=== PATIENT | male | born 1985 | race Two or more races ===

== ENCOUNTER 2023-09-17 11:34 | Inpatient (IN) | payer OTHER ==
[~2023-09-17] VITALS: Ht 188 cm; Wt 131.5 kg
[2023-09-17] MEDS ORDERED: ACETAMINOPHEN ES 500 MG TABLET PO PRN (16:30)
[2023-09-17] MEDS ORDERED: ZOLPIDEM TARTRATE 10 MG TABLET PO PRN (16:30)
[2023-09-17] MEDS ORDERED: MAG HYDROX/AL HYDROX/SIMETH 30 ML UDC PO PRN (16:30)
[2023-09-17] MEDS ORDERED: IBUPROFEN 200 MG TABLET PO PRN (16:30)
[2023-09-17] MEDS ORDERED: LORAZEPAM 1 MG TABLET FOR AGITATION PO PRN (16:30)
[2023-09-17] MEDS ORDERED: MAGNESIUM HYDROXIDE 30 ML UDC PO PRN (16:30)
[2023-09-17 20:55] VITALS: BP 143/78; TEMP 98.3; O2SAT 100
[2023-09-17] MEDS: HOME MED MISCELLANEOUS (RISPERIDONE 2 MG) PO SCH (21:11)
[2023-09-18 08:00] VITALS: BP 124/74; TEMP 98.1; O2SAT 99
[2023-09-18 16:00] VITALS: BP 131/81; TEMP 98.6; O2SAT 99
[2023-09-18 20:38] VITALS: BP 138/70; TEMP 98.2; O2SAT 99
[2023-09-19 08:00] VITALS: BP 128/74; TEMP 97.8; O2SAT 100
[2023-09-19 16:00] VITALS: BP 134/78; TEMP 97.8; O2SAT 98
[2023-09-19 21:02] VITALS: BP 138/68; TEMP 98.4; O2SAT 98
[2023-09-20 08:00] VITALS: BP 133/81; TEMP 97.8; O2SAT 99
[2023-09-20 16:00] VITALS: BP 141/61; TEMP 98.8; O2SAT 99
[2023-09-20 20:00] VITALS: BP 150/73; TEMP 97.6; O2SAT 97
[2023-09-20] MEDS: HOME MED MISCELLANEOUS (RISPERIDONE 2 MG) PO SCH (21:18)
[2023-09-21 08:00] VITALS: BP 100/50; TEMP 98; O2SAT 98
[2023-09-21 20:00] VITALS: BP 131/65; TEMP 98.1; O2SAT 98
[2023-09-22 08:00] VITALS: BP 122/71; TEMP 97.9; O2SAT 98
[2023-09-22 16:00] VITALS: BP 144/81; TEMP 98.8; O2SAT 96
[2023-09-22 20:00] VITALS: BP 146/76; TEMP 98.6; O2SAT 97
[2023-09-23 08:00] VITALS: BP 129/80; TEMP 97.7; O2SAT 99
[2023-09-23 16:00] VITALS: BP 101/51; TEMP 98; O2SAT 97
[2023-09-23 20:36] VITALS: BP 147/77; TEMP 98.1; O2SAT 100
[2023-09-24 08:00] VITALS: BP 117/67; TEMP 98; O2SAT 99
[2023-09-24 16:00] VITALS: BP 131/71; TEMP 98.4; O2SAT 100
[2023-09-24 20:45] VITALS: BP 146/80; TEMP 98.4; O2SAT 100
[2023-09-25 08:00] VITALS: BP 121/69; TEMP 98.6; O2SAT 98
[2023-09-25 22:33] VITALS: BP 133/79; TEMP 98.2; O2SAT 100
[2023-09-26 08:00] VITALS: BP 142/71; TEMP 98.1; O2SAT 98
[2023-09-26 16:00] VITALS: BP 136/78; TEMP 98.6; O2SAT 99
[2023-09-26 20:31] VITALS: BP 125/76; TEMP 98.2; O2SAT 99
[2023-09-27 08:00] VITALS: BP 131/87; TEMP 97.7; O2SAT 100
[2023-09-27 16:00] VITALS: BP 139/82; TEMP 98.2; O2SAT 98
[2023-09-27 20:00] VITALS: BP 140/89; TEMP 98.4; O2SAT 98
[2023-09-28 08:00] VITALS: BP 118/82; TEMP 97.9; O2SAT 99
[2023-09-28 20:00] VITALS: BP 150/93; TEMP 97.6; O2SAT 99
[2023-09-29 08:00] VITALS: BP 136/74; TEMP 97.9; O2SAT 98
[2023-09-29 16:00] VITALS: BP 126/76; TEMP 98.7; O2SAT 98
[2023-09-29 20:24] VITALS: BP 137/63; TEMP 97.9; O2SAT 100
[2023-09-30 08:31] VITALS: BP 118/62; TEMP 98; O2SAT 100
[2023-09-30 20:00] VITALS: BP 131/90; TEMP 97.3; O2SAT 95
[2023-10-01 08:00] VITALS: BP 131/80; TEMP 98.1; O2SAT 98
[2023-10-01] MEDS ORDERED: ZOLPIDEM TARTRATE 10 MG TABLET PO PRN (13:00)
[2023-10-01] MEDS ORDERED: LORAZEPAM 1 MG TABLET FOR AGITATION PO PRN (13:00)
[2023-10-01 16:00] VITALS: BP 133/65; TEMP 97.5; O2SAT 99
[2023-10-01 20:00] VITALS: BP 146/95; TEMP 97.9; O2SAT 98
[2023-10-02 08:00] VITALS: BP 125/54; TEMP 97.7; O2SAT 98
[2023-10-02] MEDS: INVEST MED CVL-231-2002 PO SCH (09:22)
[2023-10-02 20:00] VITALS: BP 153/80; TEMP 97.9; O2SAT 100
[2023-10-03 08:09] VITALS: BP 120/70; TEMP 98.1; O2SAT 99
[2023-10-03 20:00] VITALS: BP 145/79; TEMP 97.6; O2SAT 98
[2023-10-04 08:08] VITALS: BP_SYST 134; BP_SYST 91; BP_DIAS 57; BP_DIAS 79; TEMP 98.2; O2SAT 95; O2SAT 98
[2023-10-04 16:00] VITALS: BP 139/72; TEMP 98.1; O2SAT 98
[2023-10-04 20:00] VITALS: BP 145/80; TEMP 98.8; O2SAT 98
[2023-10-05 08:00] VITALS: BP 138/88; TEMP 98.4; O2SAT 98
[2023-10-05 16:12] VITALS: BP 160/74; TEMP 97.5; O2SAT 100
[2023-10-05 20:00] VITALS: BP 138/78; TEMP 98.8; O2SAT 99
[2023-10-06 07:30] VITALS: BP 106/68; TEMP 97.9; O2SAT 98
[2023-10-06 16:00] VITALS: BP 117/63; TEMP 98.1; O2SAT 97
[2023-10-06 20:00] VITALS: BP 148/82; TEMP 97.8; O2SAT 100
[2023-10-07 08:00] VITALS: BP 131/82; TEMP 99.1; O2SAT 99
[2023-10-07 16:00] VITALS: BP 139/82; TEMP 97.7; O2SAT 98
[2023-10-07 20:00] VITALS: BP 119/73; TEMP 98.2; O2SAT 98
[2023-10-08 04:00] VITALS: BP 154/71; TEMP 98.6; O2SAT 95
[2023-10-08 07:30] VITALS: BP 145/51; TEMP 97.3; O2SAT 97
[2023-10-08] MEDS ORDERED: LORAZEPAM 1 MG TABLET FOR AGITATION PO PRN (13:00)
[2023-10-08] MEDS ORDERED: ZOLPIDEM TARTRATE 10 MG TABLET PO PRN (13:00)
[2023-10-08 16:00] VITALS: BP 127/58; TEMP 97.1; O2SAT 97
[2023-10-08 20:00] VITALS: BP 134/74; TEMP 98.2; O2SAT 98
[2023-10-09 08:00] VITALS: BP 131/66; TEMP 97.9; O2SAT 97
[2023-10-09 23:09] VITALS: BP 157/87; TEMP 98.4; O2SAT 96
[2023-10-09 23:55] VITALS: BP 140/86; TEMP 98; O2SAT 99
[2023-10-10 08:00] VITALS: BP 136/88; TEMP 97.7; O2SAT 98
[2023-10-10 16:00] VITALS: BP 133/93; TEMP 98.4; O2SAT 99
[2023-10-10 20:00] VITALS: BP 142/74; TEMP 97.7; O2SAT 95
[2023-10-11 08:00] VITALS: BP 123/75; TEMP 97.7; O2SAT 98
[2023-10-11 16:00] VITALS: BP 126/73; TEMP 98.1; O2SAT 98
[2023-10-11 20:00] VITALS: BP 135/82; TEMP 98.2; O2SAT 98
[2023-10-12 07:30] VITALS: BP 127/77; TEMP 97.7; O2SAT 97
[2023-10-12 16:00] VITALS: BP 124/67; TEMP 98.4; O2SAT 99
[2023-10-12 20:00] VITALS: BP 135/77; TEMP 97.9; O2SAT 98
[2023-10-13 08:00] VITALS: BP 125/59; TEMP 98.2; O2SAT 98
[2023-10-13 16:15] VITALS: BP 128/69; TEMP 98.6; O2SAT 99
[2023-10-13 20:00] VITALS: BP 127/67; TEMP 98.6; O2SAT 99
[2023-10-14 08:00] VITALS: BP 128/70; TEMP 98; O2SAT 98
[2023-10-14 16:00] VITALS: BP 148/96; TEMP 97.3; O2SAT 98
[2023-10-14 21:49] VITALS: BP 133/96; TEMP 97.9; O2SAT 99
[2023-10-15 07:00] VITALS: BP 124/64; TEMP 98.1; O2SAT 96
[2023-10-15] MEDS ORDERED: LORAZEPAM 1 MG TABLET FOR AGITATION PO PRN (13:00)
[2023-10-15] MEDS ORDERED: ZOLPIDEM TARTRATE 10 MG TABLET PO PRN (13:00)
[2023-10-15 16:00] VITALS: BP 138/77; TEMP 97.5; O2SAT 97
[2023-10-15 22:05] VITALS: BP 138/83; TEMP 98.4; O2SAT 100
[2023-10-16 08:00] VITALS: BP 121/68; TEMP 97.7; O2SAT 97
[2023-10-16 20:00] VITALS: BP 147/73; TEMP 98.2; O2SAT 98
[2023-10-17 07:30] VITALS: BP 127/88; TEMP 98.2; O2SAT 98
[2023-10-17 16:00] VITALS: BP 131/80; TEMP 98.2; O2SAT 95
[2023-10-17 20:00] VITALS: BP 136/79; TEMP 98.2; O2SAT 98
[2023-10-18 07:00] VITALS: BP 118/74; TEMP 97.8; O2SAT 98
[2023-10-18 16:00] VITALS: BP 129/67; TEMP 97.9; O2SAT 100
[2023-10-18 20:00] VITALS: BP 119/78; TEMP 98.2; O2SAT 99
[2023-10-19 11:26] VITALS: BP 122/73; TEMP 97.7; O2SAT 95
[2023-10-19 12:00] VITALS: BP 109/63; TEMP 98.3; O2SAT 89
[2023-10-19 16:00] VITALS: BP 132/71; TEMP 98.1; O2SAT 98
[2023-10-19 20:00] VITALS: BP 147/71; TEMP 98; O2SAT 98
[2023-10-20 08:00] VITALS: BP 129/83; TEMP 97.9; O2SAT 95
[2023-10-20 16:00] VITALS: BP 125/68; TEMP 97.7; O2SAT 99
[2023-10-21 08:00] VITALS: BP 128/65; TEMP 97.9; O2SAT 97
[2023-10-21 16:00] VITALS: BP 141/71; TEMP 98.6; O2SAT 98
[2023-10-21 20:00] VITALS: BP 143/81; TEMP 97.9; O2SAT 100
[2023-10-21 21:21] VITALS: BP 143/81; TEMP 97.9; O2SAT 100
[2023-10-22 07:30] VITALS: BP 115/62; TEMP 98.2; O2SAT 95
[2023-10-22] MEDS ORDERED: LORAZEPAM 1 MG TABLET FOR AGITATION PO PRN (13:00)
[2023-10-22] MEDS ORDERED: ZOLPIDEM TARTRATE 10 MG TABLET PO PRN (13:00)
[2023-10-22 16:00] VITALS: BP_SYST 121; BP_SYST 141; BP_DIAS 56; BP_DIAS 80; TEMP 97.7; TEMP 97.9; O2SAT 100; O2SAT 90
[2023-10-22 20:00] VITALS: BP 143/86; TEMP 98.1; O2SAT 96
[2023-10-23 08:00] VITALS: BP 116/60; TEMP 97.7; O2SAT 98
[2023-10-23 20:00] VITALS: BP 138/80; TEMP 98.2; O2SAT 100
[2023-10-24 07:00] VITALS: BP 133/93; TEMP 98.4; O2SAT 98
[2023-10-24 16:00] VITALS: BP 142/82; TEMP 98.6; O2SAT 98
[2023-10-24 20:00] VITALS: BP 139/69; TEMP 97.7; O2SAT 99
[2023-10-25 08:00] VITALS: BP 119/68; TEMP 98.1; O2SAT 98
[2023-10-25 16:00] VITALS: BP 130/67; TEMP 98.2; O2SAT 97
[2023-10-25 20:00] VITALS: BP 145/88; TEMP 97.9; O2SAT 100
[2023-10-26 09:28] VITALS: BP 144/78; TEMP 94.1; O2SAT 95
[2023-10-26 16:00] VITALS: BP 133/78; TEMP 98.6; O2SAT 98
[2023-10-26 17:35] VITALS: TEMP 98.6
[2023-10-26 20:00] VITALS: BP 133/74; TEMP 98.4; O2SAT 98
[2023-10-27 08:00] VITALS: BP 141/74; TEMP 97.7; O2SAT 100
[2023-10-27 15:48] VITALS: BP 121/73; TEMP 98.8; O2SAT 96
[2023-10-27 20:00] VITALS: BP 138/71; TEMP 97.3; O2SAT 98
[2023-10-28 08:00] VITALS: BP 121/90; TEMP 97.7; O2SAT 97
[2023-10-28 16:00] VITALS: BP 135/85; TEMP 98.2; O2SAT 98
[2023-10-28 20:00] VITALS: BP 122/68; TEMP 98.2; O2SAT 99
[2023-10-29 08:00] VITALS: BP 114/66; TEMP 97.9; O2SAT 98
[2023-10-29] MEDS ORDERED: LORAZEPAM 1 MG TABLET FOR AGITATION PO PRN (13:00)
[2023-10-29] MEDS ORDERED: ZOLPIDEM TARTRATE 10 MG TABLET PO PRN (13:00)
[2023-10-29 16:00] VITALS: BP 117/80; TEMP 98.2; O2SAT 96
[2023-10-29 20:00] VITALS: BP 127/77; TEMP 97.9; O2SAT 97
[2023-10-30 08:00] VITALS: BP 117/72; TEMP 97.7; O2SAT 96
[2023-10-30 16:00] VITALS: BP 140/81; TEMP 97.2; O2SAT 97
[2023-10-30 20:00] VITALS: BP 150/95; TEMP 97.8; O2SAT 98
[2023-10-31 20:00] VITALS: BP 142/85; TEMP 98.2; O2SAT 98
[2023-11-01 08:00] VITALS: BP 123/89; TEMP 97.9; O2SAT 98
[2023-11-01 16:00] VITALS: BP 126/70; TEMP 98.2; O2SAT 98
[2023-11-01 20:00] VITALS: BP 133/76; TEMP 96.6; O2SAT 98
[2023-11-02 07:00] VITALS: BP 119/66; TEMP 98.4; O2SAT 99
[2023-11-03 08:00] VITALS: BP 120/66; TEMP 97.7; O2SAT 98
[2023-11-03 16:00] VITALS: BP 143/88; TEMP 97.9; O2SAT 100
[2023-11-03 20:00] VITALS: BP 134/78; TEMP 98.6; O2SAT 98
[2023-11-04 08:00] VITALS: BP 118/65; TEMP 98.2; O2SAT 96
[2023-11-04 16:00] VITALS: BP 113/61; TEMP 97.3; O2SAT 99
[2023-11-04 20:32] VITALS: BP 136/79; TEMP 97.9; O2SAT 99
[2023-11-05 08:00] VITALS: BP 112/66; TEMP 97.9; O2SAT 98
[2023-11-05] MEDS ORDERED: ZOLPIDEM TARTRATE 10 MG TABLET PO PRN (13:00)
[2023-11-05] MEDS ORDERED: LORAZEPAM 1 MG TABLET FOR AGITATION PO PRN (13:00)
[2023-11-05 16:00] VITALS: BP 133/77; TEMP 97.9; O2SAT 99
[2023-11-06 07:30] VITALS: BP 126/76; TEMP 97.5; O2SAT 99
[2023-11-06 16:00] VITALS: BP 99/58; TEMP 99.9; O2SAT 92
[2023-11-06 20:00] VITALS: BP 144/83; TEMP 98.2; O2SAT 98
[2023-11-07 07:00] VITALS: BP 122/93; TEMP 97.7; O2SAT 99
[2023-11-07 16:00] VITALS: BP 125/80; TEMP 98.4; O2SAT 98
[2023-11-07 20:00] VITALS: BP 124/84; TEMP 98.2; O2SAT 98
[2023-11-08 07:00] VITALS: BP 114/68; TEMP 98.4; O2SAT 99
[2023-11-08 16:00] VITALS: BP 109/75; TEMP 98.6; O2SAT 98
[2023-11-08 20:00] VITALS: BP 118/73; TEMP 97.5; O2SAT 97
[2023-11-08 21:12] VITALS: BP 118/73; TEMP 97.5; O2SAT 97
[2023-11-09 07:30] VITALS: BP 128/82; TEMP 98.2; O2SAT 98
[2023-11-09 20:00] VITALS: BP 153/81; TEMP 98.2; O2SAT 96
[2023-11-10 20:00] VITALS: BP 120/73; TEMP 98.2; O2SAT 98
[2023-11-11 07:30] VITALS: BP 94/64; TEMP 98.6; O2SAT 94
[2023-11-11 08:00] VITALS: BP 117/68; TEMP 98; O2SAT 100
[2023-11-11 16:00] VITALS: BP 110/82; TEMP 98.1; O2SAT 99
[2023-11-11 20:00] VITALS: BP_SYST 132; BP_SYST 138; BP_DIAS 92; TEMP 98.6; O2SAT 98
[2023-11-12 08:00] VITALS: BP 119/64; TEMP 97.9; O2SAT 97
[2023-11-12] MEDS ORDERED: ZOLPIDEM TARTRATE 10 MG TABLET PO PRN (13:00)
[2023-11-12] MEDS ORDERED: LORAZEPAM 1 MG TABLET FOR AGITATION PO PRN (13:00)
[2023-11-13 07:30] VITALS: BP 117/75; TEMP 97.7; O2SAT 98
[2023-11-13 16:00] VITALS: BP 137/76; TEMP 97.7; O2SAT 98
[2023-11-13 20:00] VITALS: BP 120/85; TEMP 98; O2SAT 96
[2023-11-14 07:30] VITALS: BP 116/67; TEMP 97.9; O2SAT 98
[2023-11-14 16:00] VITALS: BP 123/71; TEMP 97.7; O2SAT 99
[2023-11-14 20:00] VITALS: BP 141/85; TEMP 98.1; O2SAT 98
[2023-11-15 08:00] VITALS: BP 130/62; TEMP 97.5; O2SAT 96
[2023-11-15 16:08] VITALS: BP 134/75; TEMP 97.9; O2SAT 96
[2023-11-15 21:33] VITALS: BP 136/86; TEMP 98.4; O2SAT 96
[2023-11-16 07:00] VITALS: BP 126/80; TEMP 98.1; O2SAT 98
== END 2023-11-16 13:57 | disposition home or self-care (01) | DRG 951 ==
LOC: MEDOV2 15:40 → GPS 16:00 → MED 09-30 07:05
PROVIDERS: ADMIT Psychiatry & Neurology Psychiatry; ATTEND Psychiatry & Neurology Psychiatry
DX: Z00.6 Encounter for examination for normal comparison and control in clinical research program (principal); F20.0 Paranoid schizophrenia; Z79.899 Other long term (current) drug therapy
CPT/HCPCS: G0378

== ENCOUNTER 2024-10-08 09:03 | Inpatient (IN) | payer OTHER ==
[~2024-10-08] VITALS: Ht 188 cm; Wt 131.5 kg
[2024-10-08] MEDS ORDERED: IBUPROFEN 200 MG TABLET PO PRN (15:30)
[2024-10-08] MEDS ORDERED: MAGNESIUM HYDROXIDE 30 ML UDC PO PRN (15:30)
[2024-10-08] MEDS ORDERED: ZOLPIDEM TARTRATE 10 MG TABLET PO PRN (15:30)
[2024-10-08] MEDS ORDERED: MAG HYDROX/AL HYDROX/SIMETH 30 ML UDC PO PRN (15:30)
[2024-10-08] MEDS ORDERED: LORAZEPAM 1 MG TABLET FOR AGITATION PO PRN (15:30)
[2024-10-08] MEDS ORDERED: ACETAMINOPHEN ES 500 MG TABLET PO PRN (15:30)
[2024-10-08] MEDS ORDERED: RISP2TAB85 PO (17:30)
[2024-10-08 20:56] VITALS: BP 134/76; TEMP 97.9; O2SAT 100
[2024-10-08] MEDS: RISPERIDONE 2 MG PO SCH (21:18)
[2024-10-08] MEDS ORDERED: risperiDONE 1 MG TABLET PO SCH (22:00)
[2024-10-09 20:00] VITALS: BP 142/74; TEMP 97.3; O2SAT 98
[2024-10-10 07:30] VITALS: BP 128/88; TEMP 97.5; O2SAT 98
[2024-10-10 16:00] VITALS: BP 128/72; TEMP 97.7; O2SAT 97
[2024-10-10 20:00] VITALS: BP 138/80; TEMP 97.9; O2SAT 98
[2024-10-10 20:58] VITALS: BP 138/80; TEMP 97.9; O2SAT 98
[2024-10-11 08:00] VITALS: BP 127/77; TEMP 98.1; O2SAT 99
[2024-10-11 16:00] VITALS: BP 137/90; TEMP 98.1; O2SAT 96
[2024-10-11 20:00] VITALS: BP 140/76; TEMP 98.4; O2SAT 99
[2024-10-12 08:22] VITALS: BP 122/81; TEMP 98; O2SAT 97
[2024-10-12 16:08] VITALS: BP 129/72; TEMP 98; O2SAT 97
[2024-10-13 08:40] VITALS: BP 123/78; TEMP 98; O2SAT 96
[2024-10-13 16:15] VITALS: BP 147/79; TEMP 98.1; O2SAT 100
[2024-10-13 20:00] VITALS: BP 143/84; TEMP 98.2; O2SAT 99
[2024-10-14 07:30] VITALS: BP 127/82; TEMP 98.1; O2SAT 96
[2024-10-14 16:00] VITALS: BP 124/74; TEMP 98.2; O2SAT 96
[2024-10-14 20:00] VITALS: BP 139/78; TEMP 98.5; O2SAT 99
[2024-10-15 07:00] VITALS: BP 115/73; TEMP 97.5; O2SAT 98
[2024-10-15 16:00] VITALS: BP 138/80; TEMP 97.3; O2SAT 96
[2024-10-15 20:00] VITALS: BP 153/82; TEMP 98.1; O2SAT 94
[2024-10-16 20:00] VITALS: BP 149/83; TEMP 97.9; O2SAT 98
[2024-10-17 08:00] VITALS: BP 134/84; TEMP 97.5; O2SAT 98
[2024-10-17 17:37] VITALS: BP 128/72; TEMP 98.2; O2SAT 99
[2024-10-17 20:00] VITALS: BP 127/62; TEMP 97.3; O2SAT 93
[2024-10-18 08:00] VITALS: BP 117/73; TEMP 98.1; O2SAT 98
[2024-10-18 16:00] VITALS: BP 127/85; TEMP 98.2; O2SAT 100
[2024-10-18 20:00] VITALS: BP 130/81; TEMP 98.1; O2SAT 97
[2024-10-19 08:27] VITALS: BP 122/83; TEMP 97.9; O2SAT 98
[2024-10-19 16:00] VITALS: BP 125/79; TEMP 98.1; O2SAT 99
[2024-10-19 20:31] VITALS: BP 131/81; TEMP 97.7; O2SAT 100
[2024-10-20 07:30] VITALS: BP 113/69; TEMP 97.2; O2SAT 97
[2024-10-20 20:00] VITALS: BP 142/77; TEMP 98.6; O2SAT 98
[2024-10-21 08:00] VITALS: BP 129/71; TEMP 97.7; O2SAT 98
[2024-10-21 16:00] VITALS: BP 122/73; TEMP 98.1; O2SAT 98
[2024-10-22 07:30] VITALS: BP 102/51; TEMP 97.5; O2SAT 99
[2024-10-22] MEDS ORDERED: ZOLPIDEM TARTRATE 10 MG TABLET PO PRN (13:00)
[2024-10-22] MEDS ORDERED: LORAZEPAM 1 MG TABLET FOR AGITATION PO PRN (13:00)
[2024-10-22 16:20] VITALS: BP 138/75; TEMP 98.2; O2SAT 98
[2024-10-22] MEDS: INVEST MED OTSUKA 382-201-00035 PO SCH (19:54)
[2024-10-22 20:00] VITALS: BP 130/72; TEMP 98.4; O2SAT 100
[2024-10-23 07:30] VITALS: BP 96/46; TEMP 97.7; O2SAT 100
[2024-10-23 20:00] VITALS: BP 125/72; TEMP 98.1; O2SAT 97
[2024-10-24 07:00] VITALS: BP 129/72; TEMP 97.7; O2SAT 95
[2024-10-24 20:00] VITALS: BP 145/88; TEMP 97.9; O2SAT 99
[2024-10-25 08:00] VITALS: BP 142/81; TEMP 97.9; O2SAT 96
[2024-10-25 16:25] VITALS: BP 140/84; O2SAT 99
[2024-10-25 20:00] VITALS: BP 147/90; TEMP 97.2; O2SAT 98
[2024-10-26 09:09] VITALS: BP 165/81; TEMP 97.7; O2SAT 97
[2024-10-26 16:29] VITALS: BP 137/74; TEMP 98; O2SAT 97
[2024-10-26 21:22] VITALS: BP 133/82; TEMP 98.1; O2SAT 98
[2024-10-27 08:00] VITALS: BP 124/79; TEMP 98.2; O2SAT 98
[2024-10-27 16:00] VITALS: BP 135/70; TEMP 97.3; O2SAT 96
[2024-10-27 20:00] VITALS: BP 119/80; TEMP 98.1; O2SAT 97
[2024-10-28 08:00] VITALS: BP 139/82; TEMP 97.7; O2SAT 99
[2024-10-28] MEDS ORDERED: ZOLPIDEM TARTRATE 10 MG TABLET PO PRN (13:00)
[2024-10-28] MEDS ORDERED: LORAZEPAM 1 MG TABLET FOR AGITATION PO PRN (13:00)
[2024-10-28 16:00] VITALS: BP 134/74; TEMP 98.2; O2SAT 99
[2024-10-28 20:00] VITALS: BP 141/86; TEMP 97.9; O2SAT 97
[2024-10-28 21:20] VITALS: BP 141/86; TEMP 97.9; O2SAT 97
[2024-10-29 07:30] VITALS: BP 121/61; TEMP 97.5; O2SAT 100
[2024-10-29 16:00] VITALS: BP 136/69; TEMP 97.5; O2SAT 99
[2024-10-29 20:00] VITALS: BP 138/73; TEMP 97.7; O2SAT 99
[2024-10-30 08:00] VITALS: BP 124/76; TEMP 98.2; O2SAT 97
[2024-10-30 16:00] VITALS: BP 134/85; TEMP 98; O2SAT 96
[2024-10-30 20:00] VITALS: BP 152/88; TEMP 97.7; O2SAT 97
[2024-10-31 08:00] VITALS: BP 123/77; TEMP 98.1; O2SAT 99
[2024-10-31 16:29] VITALS: BP 132/77; TEMP 97.7; O2SAT 96
[2024-10-31 20:00] VITALS: BP_SYST 125; BP_SYST 141; BP_DIAS 74; BP_DIAS 86; TEMP 97.7; O2SAT 100; O2SAT 99
[2024-11-01 20:00] VITALS: BP 141/86; TEMP 97.7; O2SAT 99
[2024-11-02 07:00] VITALS: BP 111/60; TEMP 97.3; O2SAT 97
[2024-11-02 16:00] VITALS: BP 140/67; TEMP 98.2; O2SAT 100
[2024-11-02 20:00] VITALS: BP 135/86; TEMP 97.7; O2SAT 97
[2024-11-03 07:30] VITALS: BP 112/70; TEMP 97.3; O2SAT 96
[2024-11-03 15:41] VITALS: BP 134/69; TEMP 97.3; O2SAT 98
[2024-11-03 20:00] VITALS: BP 136/69; TEMP 97.7; O2SAT 98
[2024-11-04 08:00] VITALS: BP 132/73; TEMP 97.9; O2SAT 98
[2024-11-04 16:00] VITALS: BP 126/66; TEMP 98.2; O2SAT 100
[2024-11-04 21:00] VITALS: BP 144/87; TEMP 98.2; O2SAT 96
[2024-11-05] MEDS ORDERED: LORAZEPAM 1 MG TABLET FOR AGITATION PO PRN (13:00)
[2024-11-05] MEDS ORDERED: ZOLPIDEM TARTRATE 10 MG TABLET PO PRN (13:00)
[2024-11-05 16:00] VITALS: BP 149/75; TEMP 98.4; O2SAT 99
[2024-11-05 20:00] VITALS: BP 143/54; TEMP 98.1; O2SAT 100
[2024-11-06 07:30] VITALS: BP 123/67; TEMP 97.5; O2SAT 97
[2024-11-06 16:00] VITALS: BP 131/88; TEMP 97.5; O2SAT 100
[2024-11-06 20:39] VITALS: BP 127/77; TEMP 97.7; O2SAT 98
[2024-11-07 04:10] VITALS: BP 137/76; TEMP 98.1; O2SAT 98
[2024-11-07 20:00] VITALS: BP 141/80; TEMP 98.1; O2SAT 98
[2024-11-08 08:00] VITALS: BP 110/64; TEMP 97.7; O2SAT 98
[2024-11-08 16:00] VITALS: BP 136/78; TEMP 98.2; O2SAT 96
[2024-11-08 20:00] VITALS: BP 113/72; TEMP 98.2; O2SAT 100
[2024-11-09 08:00] VITALS: BP 113/73; TEMP 98.3; O2SAT 100
[2024-11-09 16:00] VITALS: BP 115/68; TEMP 97.9; O2SAT 97
[2024-11-09 20:00] VITALS: BP_SYST 108; BP_SYST 124; BP_DIAS 58; BP_DIAS 74; TEMP 97.7; O2SAT 95; O2SAT 97
[2024-11-10 07:30] VITALS: BP 129/82; TEMP 97.9; O2SAT 98
[2024-11-10 16:28] VITALS: BP 138/78; TEMP 98.2; O2SAT 98
[2024-11-10 20:00] VITALS: BP 134/76; TEMP 97.9; O2SAT 96
[2024-11-11 07:30] VITALS: BP 109/73; TEMP 97.6; O2SAT 98
[2024-11-11 16:00] VITALS: BP 117/59; TEMP 97.9; O2SAT 98
[2024-11-11 20:33] VITALS: BP 129/76; TEMP 98.6; O2SAT 100
[2024-11-12 08:00] VITALS: BP 125/71; TEMP 97.7; O2SAT 98
[2024-11-12 16:00] VITALS: BP 118/62; TEMP 97.9; O2SAT 100
[2024-11-12 20:00] VITALS: BP 131/67; TEMP 97.9; O2SAT 98
[2024-11-13 08:00] VITALS: BP 115/62; TEMP 97.7; O2SAT 100
[2024-11-13] MEDS ORDERED: ZOLPIDEM TARTRATE 10 MG TABLET PO PRN (13:00)
[2024-11-13] MEDS ORDERED: LORAZEPAM 1 MG TABLET FOR AGITATION PO PRN (13:00)
[2024-11-13 16:00] VITALS: BP 135/68; TEMP 99.5; O2SAT 96
[2024-11-13 20:00] VITALS: BP 127/77; TEMP 97.6; O2SAT 97
[2024-11-14 20:00] VITALS: BP 133/79; TEMP 97.9; O2SAT 98
[2024-11-15 08:00] VITALS: BP 130/81; TEMP 97.9; O2SAT 98
[2024-11-15 16:00] VITALS: BP 134/67; TEMP 97.6; O2SAT 98
[2024-11-15 20:00] VITALS: BP 135/93; TEMP 98.8; O2SAT 95
[2024-11-16 08:00] VITALS: BP 148/88; TEMP 98.1; O2SAT 99
[2024-11-16 16:00] VITALS: BP 134/70; TEMP 98.2
[2024-11-16 20:00] VITALS: BP 143/74; TEMP 98.8; O2SAT 97
[2024-11-17 08:00] VITALS: BP 110/64; TEMP 98.1; O2SAT 97
[2024-11-17 18:00] VITALS: BP 129/71; TEMP 98.1; O2SAT 98
[2024-11-17 20:00] VITALS: BP 113/62; TEMP 98.1; O2SAT 97
[2024-11-18 08:35] VITALS: BP 121/70; TEMP 97.6; O2SAT 98
[2024-11-18 17:39] VITALS: BP 132/70; TEMP 98.2; O2SAT 98
[2024-11-18 20:22] VITALS: BP 136/78; TEMP 98; O2SAT 99
[2024-11-19 08:00] VITALS: BP 118/81; TEMP 98.1; O2SAT 96
[2024-11-19 16:00] VITALS: BP_SYST 122; BP_SYST 125; BP_DIAS 65; BP_DIAS 75; TEMP 98.2; TEMP 99.1; O2SAT 96; O2SAT 99
[2024-11-19 20:00] VITALS: BP 133/67; TEMP 97.9; O2SAT 99
[2024-11-20 08:00] VITALS: BP 158/74; TEMP 97.3; O2SAT 96
[2024-11-20 20:24] VITALS: BP 125/78; TEMP 98.2; O2SAT 100
[2024-11-21 08:00] VITALS: BP 118/81; TEMP 97.6; O2SAT 99
[2024-11-21 16:00] VITALS: BP 121/70; TEMP 97.4; O2SAT 99
[2024-11-21 20:31] VITALS: BP 132/70; TEMP 97.8; O2SAT 99
[2024-11-22 20:35] VITALS: BP 138/82; TEMP 98.4; O2SAT 98
[2024-11-23 08:00] VITALS: BP 124/71; TEMP 97.7; O2SAT 98
[2024-11-23 16:00] VITALS: BP 126/76; TEMP 98.8; O2SAT 96
[2024-11-23 20:00] VITALS: BP 150/77; TEMP 97.8; O2SAT 98
[2024-11-24 08:00] VITALS: BP 118/68; TEMP 98.2; O2SAT 98
[2024-11-24 16:00] VITALS: BP 127/77; TEMP 98.1; O2SAT 99
[2024-11-24 20:00] VITALS: BP 158/77; TEMP 99; O2SAT 100
[2024-11-25 08:00] VITALS: BP 124/87; TEMP 97.5; O2SAT 100
[2024-11-25 16:00] VITALS: BP 136/82; TEMP 98.2; O2SAT 99
[2024-11-25 20:00] VITALS: BP 146/86; TEMP 98.8; O2SAT 98
[2024-11-26 08:00] VITALS: BP 126/78; TEMP 98.2; O2SAT 99
[2024-11-26] MEDS ORDERED: LORAZEPAM 1 MG TABLET FOR AGITATION PO PRN (13:00)
[2024-11-26] MEDS ORDERED: ZOLPIDEM TARTRATE 10 MG TABLET PO PRN (13:00)
[2024-11-26 16:00] VITALS: BP 119/81; TEMP 98.2; O2SAT 100
[2024-11-26 20:00] VITALS: BP 126/73; TEMP 98.6; O2SAT 98
[2024-11-27 08:00] VITALS: BP 116/59; TEMP 97.2; O2SAT 100
[2024-11-27 16:00] VITALS: BP 133/84; TEMP 98.4; O2SAT 100
[2024-11-27 20:00] VITALS: BP 122/88; TEMP 98.3; O2SAT 99
[2024-11-28 08:00] VITALS: BP 128/77; TEMP 98.2; O2SAT 98
[2024-11-28 16:00] VITALS: BP 134/66; TEMP 98.6; O2SAT 100
[2024-11-28 20:00] VITALS: BP 138/76; TEMP 97.9; O2SAT 100
[2024-11-29 08:00] VITALS: BP 128/67; TEMP 98.4; O2SAT 100
[2024-11-29 16:00] VITALS: BP 130/78; TEMP 98.2; O2SAT 97
[2024-11-29 20:00] VITALS: BP 117/89; TEMP 98.8; O2SAT 99
[2024-11-30 08:00] VITALS: BP 143/77; TEMP 97.3; O2SAT 99
[2024-11-30 16:00] VITALS: BP 128/74; TEMP 97.7; O2SAT 98
[2024-11-30 20:00] VITALS: BP 147/69; TEMP 98.1; O2SAT 99
[2024-12-01 16:00] VITALS: BP 145/90; TEMP 98.8; O2SAT 98
[2024-12-01 20:00] VITALS: BP 140/78; TEMP 98.2; O2SAT 99
[2024-12-02 08:00] VITALS: BP 141/64; TEMP 98.2; O2SAT 97
[2024-12-02 16:00] VITALS: BP 127/82; TEMP 97.5; O2SAT 100
[2024-12-02 20:00] VITALS: BP 131/69; TEMP 98.2; O2SAT 98
[2024-12-03 08:00] VITALS: BP 119/60; TEMP 98.1; O2SAT 98
[2024-12-03 20:46] VITALS: BP 133/81; TEMP 98; O2SAT 98
[2024-12-04 08:00] VITALS: BP 134/60; TEMP 97.7; O2SAT 97
== END 2024-12-04 11:30 | disposition left against medical advice (07) | DRG 951 ==
LOC: MED 14:45 → MEDSG2 11-13 18:59
PROVIDERS: ADMIT Psychiatry & Neurology Psychiatry; ATTEND Psychiatry & Neurology Psychiatry
DX: Z00.6 Encounter for examination for normal comparison and control in clinical research program (principal); F20.0 Paranoid schizophrenia; Z79.899 Other long term (current) drug therapy
CPT/HCPCS: G0378

== ENCOUNTER 2025-04-15 13:14 | Inpatient (IN) | payer OTHER ==
[~2025-04-15] VITALS: Ht 188 cm; Wt 117.0 kg
[~2025-04-15 13:14] MED LIST: RISP2TAB85 PO
[2025-04-15 16:00] VITALS: BP 122/66; TEMP 98.1; O2SAT 100
[2025-04-15] MEDS ORDERED: MAG HYDROX/AL HYDROX/SIMETH 30 ML UDC PO PRN (17:00)
[2025-04-15] MEDS ORDERED: MAGNESIUM HYDROXIDE 30 ML UDC PO PRN (17:00)
[2025-04-15] MEDS ORDERED: IBUPROFEN 200 MG TABLET PO PRN (17:00)
[2025-04-15] MEDS ORDERED: ONDANSETRON 4 MG TAB.RAPDIS PO PRN (17:00)
[2025-04-15] MEDS ORDERED: ACETAMINOPHEN ES 500 MG TABLET PO PRN (17:00)
[2025-04-15 20:00] VITALS: BP 127/66; TEMP 97.7; O2SAT 99
[2025-04-15] MEDS ORDERED: ZOLPIDEM TARTRATE 10 MG TABLET PO PRN ×2 (22:00)
[2025-04-15] MEDS ORDERED: LORAZEPAM 1 MG TABLET FOR AGITATION PO PRN ×2 (22:00)
[2025-04-15] MEDS: RISPERDONE PO SCH (22:28)
[2025-04-16 07:00] VITALS: BP 111/66; TEMP 98.7; O2SAT 98
[2025-04-16 16:00] VITALS: BP 130/70; TEMP 98.1; O2SAT 98
[2025-04-17 08:00] VITALS: BP 117/79; TEMP 98.6; O2SAT 99
[2025-04-17 16:00] VITALS: BP 124/73; TEMP 98.6; O2SAT 98
[2025-04-17 20:00] VITALS: BP 124/63; TEMP 98.1; O2SAT 99
[2025-04-18 08:00] VITALS: BP 123/81; TEMP 98.1; O2SAT 99
[2025-04-18 08:20] VITALS: BP 123/81; TEMP 98.1; O2SAT 99
[2025-04-18 16:00] VITALS: BP 122/70; TEMP 98.1; O2SAT 99
[2025-04-18 20:00] VITALS: BP 131/82; TEMP 97.9; O2SAT 98
[2025-04-19 08:00] VITALS: BP 129/78; TEMP 97.9; O2SAT 100
[2025-04-19 20:00] VITALS: BP 113/67; TEMP 97.9; O2SAT 98
[2025-04-20 08:00] VITALS: BP 124/72; TEMP 98.6; O2SAT 99
[2025-04-20 16:00] VITALS: BP 131/72; TEMP 98.4; O2SAT 100
[2025-04-20 20:00] VITALS: BP 130/73; TEMP 98.1; O2SAT 98
[2025-04-20 20:10] VITALS: BP 130/73; TEMP 98.1; O2SAT 98
[2025-04-21 08:00] VITALS: BP 109/68; TEMP 97.7; O2SAT 98
[2025-04-21 16:00] VITALS: BP 124/76; TEMP 97.6; O2SAT 100
[2025-04-21 20:57] VITALS: BP 122/76; TEMP 98.4; O2SAT 98
[2025-04-22 07:00] VITALS: BP 126/74; TEMP 97.3; O2SAT 98
[2025-04-22] MEDS ORDERED: LORAZEPAM 1 MG TABLET FOR AGITATION PO PRN (13:00)
[2025-04-22] MEDS ORDERED: ZOLPIDEM TARTRATE 10 MG TABLET PO PRN (13:00)
[2025-04-22 16:00] VITALS: BP 115/66; TEMP 97.3; O2SAT 99
[2025-04-22 20:00] VITALS: BP 142/75; TEMP 98.6; O2SAT 97
[2025-04-22] MEDS: RISPERIDONE 2 MG PO SCH (22:00)
[2025-04-23] MEDS ORDERED: INVEST MED ML-007C-A-211 1 TAB EA BOTTLE AM PO SCH (06:30)
[2025-04-23 08:00] VITALS: BP 122/74; TEMP 97.7; O2SAT 98
[2025-04-23 16:00] VITALS: BP 122/68; TEMP 98.9; O2SAT 96
[2025-04-23] MEDS ORDERED: INVEST MED ML-007C-A-211 1TAB EA BOTTLE PM PO SCH (18:30)
[2025-04-23 21:02] VITALS: BP 131/79; TEMP 98.2; O2SAT 99
[2025-04-24] MEDS ORDERED: INVEST MED ML-007C-A-211 1 TAB EA BOTTLE AM PO SCH (06:30)
[2025-04-24 08:48] VITALS: BP 122/71; TEMP 98.1; O2SAT 100
[2025-04-29] MEDS ORDERED: LORAZEPAM 1 MG TABLET FOR AGITATION PO PRN (13:00)
[2025-04-29] MEDS ORDERED: ZOLPIDEM TARTRATE 10 MG TABLET PO PRN (13:00)
[2025-05-06] MEDS ORDERED: ZOLPIDEM TARTRATE 10 MG TABLET PO PRN (13:00)
[2025-05-06] MEDS ORDERED: LORAZEPAM 1 MG TABLET FOR AGITATION PO PRN (13:00)
[2025-05-13] MEDS ORDERED: LORAZEPAM 1 MG TABLET FOR AGITATION/ANXIETY PO PRN (13:00)
[2025-05-13] MEDS ORDERED: ZOLPIDEM TARTRATE 10 MG TABLET PO PRN (13:00)
[2025-05-20] MEDS ORDERED: LORAZEPAM 1 MG TABLET FOR AGITATION/ANXIETY PO PRN (13:00)
[2025-05-20] MEDS ORDERED: ZOLPIDEM TARTRATE 10 MG TABLET PO PRN (13:00)
[2025-05-27] MEDS ORDERED: ZOLPIDEM TARTRATE 10 MG TABLET PO PRN (13:00)
[2025-05-27] MEDS ORDERED: LORAZEPAM 1 MG TABLET FOR AGITATION/ANXIETY PO PRN (13:00)
== END 2025-04-24 12:46 | disposition home or self-care (01) | DRG 951 ==
LOC: MED 15:14
PROVIDERS: ADMIT Psychiatry & Neurology Psychiatry; ATTEND Psychiatry & Neurology Psychiatry
DX: Z00.6 Encounter for examination for normal comparison and control in clinical research program (principal); F20.0 Paranoid schizophrenia; H50.9 Unspecified strabismus; Z79.899 Other long term (current) drug therapy
CPT/HCPCS: G0378

== ENCOUNTER 2025-04-24 12:31 | Inpatient (IN) | payer OTHER ==
[~2025-04-24] VITALS: Ht 188 cm; Wt 117.0 kg
[2025-04-24 13:00] VITALS: BP 127/74; TEMP 98.2
[2025-04-24] MEDS ORDERED: LORAZEPAM 1 MG TABLET FOR AGITATION PO PRN (14:00)
[2025-04-24] MEDS ORDERED: ZOLPIDEM TARTRATE 10 MG TABLET PO PRN (14:00)
[2025-04-24] MEDS ORDERED: IBUPROFEN 200 MG TABLET PO PRN (14:00)
[2025-04-24] MEDS ORDERED: ACETAMINOPHEN ES 500 MG TABLET PO PRN (14:00)
[2025-04-24] MEDS ORDERED: MAG HYDROX/AL HYDROX/SIMETH 30 ML UDC PO PRN (14:00)
[2025-04-24] MEDS ORDERED: MAGNESIUM HYDROXIDE 30 ML UDC PO PRN (14:00)
[2025-04-24 20:00] VITALS: BP 123/80; TEMP 98.1; O2SAT 99
[2025-04-24] MEDS: HOME MED MISCELLANEOUS (RISPERIDONE 1 MG) PO SCH (22:01)
[2025-04-25 07:30] VITALS: BP 126/74; TEMP 97.9; O2SAT 97
[2025-04-25 16:00] VITALS: BP 139/73; TEMP 97.7; O2SAT 96
[2025-04-25 20:00] VITALS: BP 142/76; TEMP 97.9; O2SAT 98
[2025-04-26 08:00] VITALS: BP 134/85; TEMP 97.9; O2SAT 100
[2025-04-26 16:00] VITALS: BP 140/86; TEMP 98.1; O2SAT 98
[2025-04-26 20:53] VITALS: BP 133/76; TEMP 97.9; O2SAT 96
[2025-04-27 08:00] VITALS: BP 120/81; TEMP 97.9; O2SAT 99
[2025-04-27 16:00] VITALS: BP 143/85; TEMP 98.1; O2SAT 99
[2025-04-27 20:00] VITALS: BP 135/81; TEMP 98.1; O2SAT 100
[2025-04-28 08:47] VITALS: BP 128/78; TEMP 98.6; O2SAT 100
[2025-04-28 20:00] VITALS: BP 132/76; TEMP 97.7; O2SAT 98
[2025-04-29 08:00] VITALS: BP 124/76; TEMP 98.2; O2SAT 99
[2025-04-29 16:00] VITALS: BP 129/75; TEMP 98.2; O2SAT 98
[2025-04-29 20:00] VITALS: BP 146/74; TEMP 97.7; O2SAT 99
[2025-04-30 07:30] VITALS: BP 128/81; TEMP 97.7; O2SAT 95
[2025-04-30 16:00] VITALS: BP 143/75; TEMP 97.9; O2SAT 96
[2025-04-30 20:00] VITALS: BP 133/78; TEMP 98.1; O2SAT 98
[2025-05-01 20:00] VITALS: BP 155/70; TEMP 98.1; O2SAT 99
[2025-05-02 08:00] VITALS: BP 125/79; TEMP 97.9; O2SAT 99
[2025-05-02 16:00] VITALS: BP 140/87; TEMP 97.9; O2SAT 100
[2025-05-02 20:00] VITALS: BP 139/76; TEMP 98.2; O2SAT 99
[2025-05-03 08:00] VITALS: BP 131/80; TEMP 97.7; O2SAT 100
[2025-05-03 16:00] VITALS: BP 140/78; TEMP 97.9; O2SAT 99
[2025-05-03 20:00] VITALS: BP 142/87; TEMP 97.9; O2SAT 100
[2025-05-03 21:02] VITALS: BP 142/87; TEMP 97.9; O2SAT 100
[2025-05-04] MEDS ORDERED: LORAZEPAM 1 MG TABLET FOR AGITATION PO PRN (13:00)
[2025-05-04] MEDS ORDERED: ZOLPIDEM TARTRATE 10 MG TABLET PO PRN (13:00)
[2025-05-04 20:00] VITALS: BP 139/74; TEMP 98.5; O2SAT 99
[2025-05-05 08:00] VITALS: BP 138/82; TEMP 97.9; O2SAT 99
[2025-05-05 20:00] VITALS: BP 138/79; TEMP 98.8; O2SAT 97
[2025-05-06 08:00] VITALS: BP 147/96; TEMP 98.2; O2SAT 100
[2025-05-06] MEDS ORDERED: [UNRECOGNIZED DRUG - OTHER] PO SCH (10:00)
[2025-05-06 16:00] VITALS: BP 140/76; TEMP 98.2; O2SAT 100
[2025-05-06 20:00] VITALS: BP 136/79; TEMP 97.9; O2SAT 99
[2025-05-07] MEDS: [UNRECOGNIZED DRUG - OTHER] PO SCH (09:50)
[2025-05-07 16:00] VITALS: BP 130/88; TEMP 98.2; O2SAT 98
[2025-05-07 21:50] VITALS: BP 137/89; TEMP 98.6; O2SAT 97
[2025-05-08 08:31] VITALS: BP 130/68; TEMP 98.1; O2SAT 98
[2025-05-08 20:00] VITALS: BP 129/84; TEMP 98.4; O2SAT 98
[2025-05-09 08:00] VITALS: BP 140/63; TEMP 98.1; O2SAT 99
[2025-05-09 16:00] VITALS: BP 120/76; TEMP 98.2; O2SAT 99
[2025-05-09 20:00] VITALS: BP 131/68; TEMP 98.1; O2SAT 99
[2025-05-10 08:00] VITALS: BP 138/74; TEMP 97.9; O2SAT 98
[2025-05-10 16:00] VITALS: BP 130/82; TEMP 98.2; O2SAT 98
[2025-05-10 20:00] VITALS: BP 134/72; TEMP 97.5; O2SAT 99
[2025-05-11 07:30] VITALS: BP 115/74; TEMP 98.1; O2SAT 98
[2025-05-11 20:00] VITALS: BP 118/75; TEMP 98.1; O2SAT 100
[2025-05-12 08:00] VITALS: BP 135/81; TEMP 98.1; O2SAT 98
[2025-05-12] MEDS ORDERED: LORAZEPAM 1 MG TABLET FOR AGITATION PO PRN (13:00)
[2025-05-12] MEDS ORDERED: ZOLPIDEM TARTRATE 10 MG TABLET PO PRN (13:00)
[2025-05-12 16:00] VITALS: BP 130/84; TEMP 98; O2SAT 99
[2025-05-12 20:00] VITALS: BP 129/82; TEMP 98.4; O2SAT 98
[2025-05-13 09:00] VITALS: BP 140/75; TEMP 97.9; O2SAT 98
[2025-05-13 20:00] VITALS: BP 129/80; TEMP 97.9; O2SAT 99
[2025-05-14 08:00] VITALS: BP 128/81; TEMP 98.1; O2SAT 100
[2025-05-14 16:00] VITALS: BP 122/63; TEMP 98
[2025-05-14 20:00] VITALS: BP 134/83; TEMP 97.7; O2SAT 96
[2025-05-15 08:00] VITALS: BP 139/77; TEMP 98.1; O2SAT 100
[2025-05-15 10:00] VITALS: BP 130/71; TEMP 98; O2SAT 99
[2025-05-15 15:36] VITALS: BP 126/64; TEMP 97.5; O2SAT 100
[2025-05-15 16:38] VITALS: TEMP 98.1
[2025-05-15 20:00] VITALS: BP 133/70; TEMP 98.1; O2SAT 98
[2025-05-16 08:00] VITALS: BP 123/83; TEMP 97.9; O2SAT 96
[2025-05-16 16:00] VITALS: BP 135/64; TEMP 97.3; O2SAT 100
[2025-05-16 20:08] VITALS: BP 124/74; TEMP 98.3; O2SAT 99
[2025-05-17 08:00] VITALS: BP 116/75; TEMP 97.9; O2SAT 97
[2025-05-17 16:00] VITALS: BP 124/74; TEMP 98.1; O2SAT 99
[2025-05-17 19:36] VITALS: BP 133/73; TEMP 98.4; O2SAT 99
[2025-05-18 08:03] VITALS: BP 131/81; TEMP 97.8; O2SAT 100
[2025-05-18 16:00] VITALS: BP 130/73; TEMP 98
[2025-05-18 20:00] VITALS: BP 119/72; TEMP 98.2; O2SAT 97
[2025-05-19 09:00] VITALS: BP 120/72; TEMP 97.4; O2SAT 98
[2025-05-19] MEDS ORDERED: LORAZEPAM 1 MG TABLET FOR AGITATION PO PRN (13:00)
[2025-05-19] MEDS ORDERED: ZOLPIDEM TARTRATE 10 MG TABLET PO PRN (13:00)
[2025-05-19 19:59] VITALS: BP 126/84; TEMP 97.7; O2SAT 99
[2025-05-20 08:00] VITALS: BP 126/77; TEMP 98.3; O2SAT 100
[2025-05-20 16:00] VITALS: BP 133/76; TEMP 98.2; O2SAT 100
[2025-05-20 20:00] VITALS: BP 128/81; TEMP 97.9; O2SAT 97
[2025-05-21 08:00] VITALS: BP 114/76; TEMP 98.7; O2SAT 100
[2025-05-21 16:00] VITALS: BP 121/79; TEMP 98.2; O2SAT 97
[2025-05-21 20:00] VITALS: BP 135/66; TEMP 97.9; O2SAT 99
[2025-05-22 08:00] VITALS: BP 122/74; TEMP 98; O2SAT 100
[2025-05-22 16:00] VITALS: BP 133/73; TEMP 98.1; O2SAT 100
[2025-05-22 20:00] VITALS: BP 125/76; TEMP 98.2; O2SAT 99
[2025-05-23 10:00] VITALS: BP 128/82; TEMP 97.9; O2SAT 98
[2025-05-23 15:00] VITALS: BP 133/70; TEMP 98; O2SAT 98
[2025-05-23 20:00] VITALS: BP 124/66; TEMP 97.6; O2SAT 99
[2025-05-24 08:10] VITALS: BP 130/84; TEMP 98; O2SAT 100
[2025-05-24 16:00] VITALS: BP 121/70; TEMP 97.8; O2SAT 100
[2025-05-24 20:00] VITALS: BP 128/71; TEMP 98.2; O2SAT 98
[2025-05-25 08:00] VITALS: BP 134/83; TEMP 98.2; O2SAT 100
[2025-05-25 16:00] VITALS: BP 122/67; TEMP 98.4; O2SAT 99
[2025-05-25 20:00] VITALS: BP 125/76; TEMP 99; O2SAT 97
[2025-05-26 08:00] VITALS: BP 133/83; TEMP 97.8; O2SAT 100
[2025-05-26] MEDS ORDERED: ZOLPIDEM TARTRATE 10 MG TABLET PO PRN (13:00)
[2025-05-26] MEDS ORDERED: LORAZEPAM 1 MG TABLET FOR AGITATION PO PRN (13:00)
[2025-05-26 20:00] VITALS: BP 120/70; TEMP 97.8; O2SAT 100
[2025-05-27 08:00] VITALS: BP 122/86; TEMP 98.2; O2SAT 100
[2025-05-27 20:00] VITALS: BP 121/77; TEMP 98.2; O2SAT 98
[2025-05-28 08:00] VITALS: BP 123/80; TEMP 97.3; O2SAT 100
[2025-05-28 16:12] VITALS: BP 122/71; TEMP 98.2; O2SAT 98
[2025-05-28 20:00] VITALS: BP 121/71; TEMP 98.8; O2SAT 99
[2025-05-29 08:00] VITALS: BP 113/67; TEMP 98.1; O2SAT 97
[2025-05-29 16:00] VITALS: BP 122/78; TEMP 98.1; O2SAT 99
[2025-05-29 20:00] VITALS: BP 130/64; TEMP 99; O2SAT 99
[2025-05-30 08:04] VITALS: BP 115/68; TEMP 98.1; O2SAT 98
[2025-05-30 16:46] VITALS: BP 133/73; TEMP 98.6; O2SAT 98
[2025-05-30 20:36] VITALS: BP 121/71; TEMP 97.9; O2SAT 97
[2025-05-31 08:00] VITALS: BP 116/67; TEMP 98.2; O2SAT 98
[2025-05-31 20:28] VITALS: BP 116/72; TEMP 98.2; O2SAT 99
[2025-06-01 08:15] VITALS: BP 122/77; TEMP 98.1; O2SAT 97
[2025-06-01 17:42] VITALS: BP 132/71; TEMP 98.4; O2SAT 99
[2025-06-01 20:00] VITALS: BP 134/69; TEMP 98.1; O2SAT 100
[2025-06-02 08:10] VITALS: BP 115/77; TEMP 98.1; O2SAT 96
[2025-06-02] MEDS ORDERED: LORAZEPAM 1 MG TABLET FOR AGITATION PO PRN (13:00)
[2025-06-02] MEDS ORDERED: ZOLPIDEM TARTRATE 10 MG TABLET PO PRN (13:00)
[2025-06-02 20:00] VITALS: BP 141/80; TEMP 97.7; O2SAT 99
[2025-06-03 09:27] VITALS: BP 127/78; TEMP 98; O2SAT 99
[2025-06-03 20:00] VITALS: BP 126/79; TEMP 98.8; O2SAT 99
[2025-06-04 20:00] VITALS: BP 130/70; TEMP 98.2; O2SAT 100
[2025-06-05 08:00] VITALS: BP 122/83; TEMP 98.2; O2SAT 98
[2025-06-05 15:00] VITALS: BP 126/68; TEMP 98.6; O2SAT 99
[2025-06-05 20:00] VITALS: BP 134/78; TEMP 97.7; O2SAT 98
[2025-06-06 08:00] VITALS: BP 129/81; TEMP 97.8; O2SAT 98
[2025-06-06 12:00] VITALS: BP 125/78; TEMP 98.1; O2SAT 97
[2025-06-06 16:00] VITALS: BP 131/77; TEMP 97.9; O2SAT 99
[2025-06-06 20:00] VITALS: BP 133/75; TEMP 98.2; O2SAT 98
[2025-06-07 08:00] VITALS: BP 110/62; TEMP 97.7; O2SAT 98
[2025-06-07 15:30] VITALS: BP 126/81; TEMP 98.2; O2SAT 98
[2025-06-07 20:00] VITALS: BP 125/73; TEMP 98.6; O2SAT 99
[2025-06-08 09:02] VITALS: BP 121/81; TEMP 97.5; O2SAT 99
[2025-06-08] MEDS ORDERED: ZOLPIDEM TARTRATE 10 MG TABLET PO PRN (13:00)
[2025-06-08] MEDS ORDERED: LORAZEPAM 1 MG TABLET FOR AGITATION PO PRN (13:00)
[2025-06-08 20:00] VITALS: BP 120/79; TEMP 98.2; O2SAT 100
[2025-06-09 08:10] VITALS: BP 136/75; TEMP 97.7; O2SAT 98
[2025-06-09 20:14] VITALS: BP 127/64; TEMP 98.1; O2SAT 97
[2025-06-10 09:00] VITALS: BP 139/79; TEMP 98.1; O2SAT 97
[2025-06-10 20:00] VITALS: BP 121/64; TEMP 99; O2SAT 99
[2025-06-10] MEDS: HOME MED MISCELLANEOUS (RISPERIDONE 1MG TABLET) PO SCH (22:00)
[2025-06-11 08:00] VITALS: BP 123/73; TEMP 98; O2SAT 100
[2025-06-11 15:58] VITALS: BP 124/85; TEMP 97.8; O2SAT 97
[2025-06-11 20:00] VITALS: BP 128/77; TEMP 98.2; O2SAT 100
[2025-06-11] MEDS: RISPERIDONE 2 MG PO SCH (21:46)
[2025-06-12 08:13] VITALS: BP 120/62; TEMP 97.9; O2SAT 99
[2025-06-12 20:00] VITALS: BP 133/61; TEMP 98.4; O2SAT 98
[2025-06-13 09:52] VITALS: BP 130/79; TEMP 98.1; O2SAT 97
[2025-06-13 20:09] VITALS: BP 146/67; TEMP 98.2; O2SAT 100
[2025-06-14 08:00] VITALS: BP 119/73; TEMP 98.1; O2SAT 98
[2025-06-14 20:47] VITALS: BP 138/69; TEMP 97.9; O2SAT 98
[2025-06-15 08:00] VITALS: BP 117/64; TEMP 98.2; O2SAT 95
== END 2025-06-15 10:50 | disposition home or self-care (01) | DRG 951 ==
LOC: MED 12:31 → MEDSG2 05-11 13:17
PROVIDERS: ADMIT Psychiatry & Neurology Psychiatry; ATTEND Psychiatry & Neurology Psychiatry
DX: Z00.6 Encounter for examination for normal comparison and control in clinical research program (principal); F20.0 Paranoid schizophrenia; Z79.899 Other long term (current) drug therapy
CPT/HCPCS: G0378